=== PATIENT | female | born 1970 | race Caucasian/White ===

== ENCOUNTER 2019-10-02 17:53 | Emergency (ER) | payer OTHER ==
[~2019-10-02] VITALS: Ht 160 cm; Wt 62.7 kg
[2019-10-02 18:09] VITALS: BP 133/84
--- NOTE | 2019-10-02 18:34 | PHYS DOC ---
Past History Past Medical History: No Pertinent History Past Surgical History: Other Additional Past Surgical Histo: wisdom teeth; LEAP Alcohol Use: Occasionally Drug Use: None Adult General Chief Complaint Chief Complaint: HEADACHE HPI HPI Patient is a 49 year old female who presents with complaint of right-sided headache. The patient states that she started noticing pain symptoms and headache yesterday. Notes however that today she started having sharp pains behind her right eye as well as pain along the posterior scalp and right side of her head today. States that the pain seems to worsen whenever she bends over or turns her head too quickly. Denies any nausea, dizziness, associated vision loss, or pain along her right christian. No history of similar symptoms. Was seen at urgent care prior to referral to the emergency department and was started on Tylenol No. 2 which she states has helped with her pain. Has been having URI symptoms over the past week. Currently denies any fevers but has been having nasal congestion. Currently rates her pain as moderate but states that it becomes moderate to severe with certain head movements. No photophobia. Review of Systems Review of Systems Constitutional: Denies fever or chills [] Eyes: Denies change in visual acuity, redness, or eye pain [] HENT: Denies nasal congestion or sore throat [] Respiratory: Denies cough or shortness of breath [] Cardiovascular: Denies chest pain or edema[] GI: Denies abdominal pain, nausea, vomiting, bloody stools or diarrhea [] : Denies dysuria or hematuria [] Musculoskeletal: Right-sided neck pain, denies back pain[] Integument: Denies rash or skin lesions [] Neurologic: Headache, denies focal weakness or sensory changes [] All other systems were reviewed and found to be within normal limits, except as documented in this note. Allergies Allergies Allergies Coded Allergies Type Severity Reaction Last Updated Verified No Known Drug Allergies 10/02/19 No Physical Exam Physical Exam Constitutional: Well developed, well nourished, no acute distress, non-toxic appearance. [] HENT: Normocephalic, atraumatic, bilateral external ears normal, oropharynx moist, no oral exudates, mild right frontal sinus tenderness to palpation, nasal mucosal edema right greater than left with thick rhinorrhea. [] Eyes: PERRLA, EOMI, conjunctiva normal, no discharge. [] Neck: Normal range of motion, no tenderness, supple, no stridor. [] Cardiovascular:Heart rate regular rhythm, no murmur [] Lungs & Thorax: Bilateral breath sounds clear to auscultation [] Abdomen: Bowel sounds normal, soft, no tenderness, no masses, no pulsatile m asses. [] Skin: Warm, dry, no erythema, no rash. [] Back: No tenderness, no CVA tenderness. [] Extremities: No tenderness, no cyanosis, no clubbing, ROM intact, no edema. [] Neurologic: Alert and oriented X 3, normal motor function, normal sensory function, no focal deficits noted. [] Current Patient Data Vital Signs Vital Signs Date Time Temp Pulse Resp B/P (MAP) Pulse Ox O2 Delivery O2 Flow Rate FiO2 10/02/19 18:09 98.2 77 18 99 Room Air EKG EKG Not performed[] Radiology/Procedures Radiology/[place] [address] IMAGING REPORT Signed PATIENT: KYM VÁSQUEZ ACCOUNT: [id number] : 1970 LOCATION: ER AGE: 49 SEX: F EXAM STATUS: REG ER ORD. PHYSICIAN: FANNY BARCENAS MD REASON: right side headache PROCEDURE: CT HEAD WO CONTRAST CT Head W/O Contrast: History: Right-sided headache Comparison: none Axial images were obtained without contrast. The alberts and white matter appears normal and symmetrical for the patients age. There is no mass effect, extraaxial fluid collections or hydrocephalus. There is no gross bleed. There is no focal loss of alberts-white matter distinction to suggest acute ischemia, i.e. stroke. Impression: No acute findings. RS Compliance Statement: One or more of the following individualized dose reduction techniques were utilized for this examination: 1. Automated exposure control 2. Adjustment of the mA and/or kV according to patient size 3. Use of iterative reconstruction technique Electronically signed by: Chavo Pedraza III, MD (10/02/2019 6:47 PM) [facility] DICTATED AND SIGNED BY: CHAVO PEDRAZA III, MD DATE: 10/02/19 8789 CC: FANNY BARCENAS MD; PCP,UNKNOWN ~ [] Course & Med Decision Making Course & Med Decision Making Pertinent Labs and Imaging studies reviewed. (See chart for details) CT head negative. The patient's symptoms are suspicious for sinusitis. Patient's vital signs otherwise stable and patient and no acute distress at this time. Patient will be started on Augmentin for treatment of sinusitis and advised to follow-up with primary doctor in the next 3-5 days for reevaluation. Advised return to emergency department for any worsening symptoms. Patient was understanding and in agreement with treatment plan.[] Dragon Disclaimer Dragon Disclaimer This electronic medical record was generated, in whole or in part, using a voice recognition dictation system. Departure Departure: Impression: Primary Impression: Sinus headache Disposition: HOME, SELF-CARE Condition: STABLE Referrals: PCP,UNKNOWN (PCP) Patient Instructions: Sinus Headache Additional Instructions: Follow-up with your primary doctor in the next 3-5 days for reevaluation. Return to the emergency department for any worsening symptoms. Scripts Amoxicillin/Potassium Clav (AUGMENTIN 875-125 TABLET) 1 Each Tablet 1 TAB PO BID for 7 Days, #14 TAB 0 Refills Prov: FANNY BARCENAS MD 10/02/19 FANNY BARCENAS MD Oct 02, 2019 18:34
--- NOTE | 2019-10-02 18:50 | RAD ---
CT Head W/O Contrast: History: Right-sided headache Comparison: none Axial images were obtained without contrast. The alberts and white matter appears normal and symmetrical for the patients age. There is no mass effect, extraaxial fluid collections or hydrocephalus. There is no gross bleed. There is no focal loss of alberts-white matter distinction to suggest acute ischemia, i.e. stroke. Impression: No acute findings. RS Compliance Statement: One or more of the following individualized dose reduction techniques were utilized for this examination: 1. Automated exposure control 2. Adjustment of the mA and/or kV according to patient size 3. Use of iterative reconstruction technique Electronically signed by: Reginaldo Mcknight III, MD (10/02/2019 6:47 PM) [facility]
[2019-10-02] MEDS ORDERED: AMOX1TAB61 PO (18:57)
== END 2019-10-02 19:05 | disposition home or self-care (01) ==
LOC: ER 17:53
DX: R51 Headache (principal); M54.2 Cervicalgia
CPT/HCPCS: 70450; 99284-25